=== PATIENT | female | born 1945 | race Caucasian/White ===

== ENCOUNTER 2018-03-21 22:23 | Emergency (ER) | payer OTHER ==
[2018-03-21 23:37] LABS: Absolute Lymphocytes (CBC) 2.2 K/uL (0.7-4.9); Absolute Monocytes 0.5 K/uL (0.1-1.3); Absolute Neutrophil 4.6 K/uL (1.8-8.0); Basophils % 0.9 % (0-1.3); Eosinophils % 2.6 % (0-4.4); Hematocrit 39.6 % (36.0-45.0); Lymphocytes % 29.1 % (15.3-44.8); MCH 28.9 pg (27.0-35.0); MPV 10.2 fL (7.6-11.3); Monocytes % 6.9 % (3.3-12.3); RBC Red Blood Cell Count 4.56 M/uL (3.86-4.86)
[2018-03-21 23:40] LABS: Protime INR 0.97
[2018-03-21 23:47] LABS: Bicarbonate 28 mEq/L (21-31); Glucose Level 371 mg/dL (65-120); Potassium 4.3 mEq/L (3.6-5.0); Sodium Level 132 mEq/L (135-145)
[2018-03-21 23:53] LABS: ALT/SGPT 31 IU/L (10-60); AST/SGOT 36 IU/L (10-42); Albumin 3.4 g/dL (3.2-5.5); Alkaline Phosphatase 78 IU/L (42-121); BUN Blood Urea Nitrogen 17 mg/dL (6-20); Bilirubin Direct 0.1 mg/dL (0-0.2); Bilirubin Total 0.7 mg/dL (0.3-1.2); Protein, Total 7.4 g/dL (6.0-8.3)
[2018-03-22 00:04] LABS: Alcohol Serum/Plasma < 10 mg/dl
[2018-03-22] MEDS ORDERED: NA CHLORIDE 0.9% 1,000 ML ONE (02:04)
[2018-03-22 02:14] LABS: Barbiturates NEGATIVE; Benzodiazepines NEGATIVE; Cocaine NEGATIVE; METHAMPHETAM NEGATIVE; Opiates NEGATIVE
[2018-03-22 02:21] LABS: Urine Blood TRACE (NEG); Urine Glucose 2+ (NEG); Urine Protein NEGATIVE (NEG); Urine Specific Gravity 1.025 (1.005-1.030); Urine pH 5.5 (5.0-7.0)
--- NOTE | 2018-03-22 02:28 | EDPHYS ---
Physician Documentation [facility] Name: Daria Dietz Age: 72 yrs Sex: Female : 1945 Arrival Date: 03/21/2018 Time: 22:27 Bed 24 Private MD: Ngero Nieves H ED Physician Luis Fernando Atwood HPI: 03/21 23:00 This 72 yrs old Female presents to ER via Ambulatory with complaints of pm1 Breathing Difficulty. 23:00 The patient has shortness of breath at rest. Onset: The symptoms/episode began/occurred pm1 3 month(s) ago. Duration: The symptoms. Associated signs and symptoms: Pertinent negatives: chest pain, non-productive cough, productive cough, dizziness, fever, loss of consciousness, vomiting. Severity of symptoms: in the emergency department the symptoms are unchanged. The patient has experienced similar episodes in the past, chronically. Patient with diagnosis of dementia a few months ago and is currently seeing Dr. Erazo for management. Patient with sensation of shortness of breath due to the belief that people in her attic are burning vegetation to produce smoke to irritate her asthma and COPD. Historical: - Allergies: 22:48 PENICILLINS; fc - Home Meds: 22:48 gabapentin oral oral [Active]; albuterol sulfate 2.5 mg /3 mL (0.083 %) Inhl nebu as fc needed [Active]; Wellbutrin Oral [Active]; Dementia medication [Active]; glyburide-metformin oral oral [Active]; Novolin 70/30 [place] Sub-Q 25 unit twice a day [Active]; - PMHx: 22:48 COPD; Dementia; tuberculosis; Diabetes - IDDM; Hypertension; neuropathy; fc - PSHx: 22:48 Hysterectomy; L lung partially removed; back surgery; Cholecystectomy; Appendectomy; L fc shoulder repair; Knee surgery; - Immunization history:: Last tetanus immunization: unknown. - Social history:: Smoking status: Patient/guardian denies using tobacco. ROS: 23:00 Constitutional: Negative for fever, chills, and weight loss, Eyes: Negative for injury, pm1 pain, redness, and discharge, ENT: Negative for injury, pain, and discharge, Neck: Negative for injury, pain, and swelling, Cardiovascular: Negative for chest pain, palpitations, and edema. 23:00 Abdomen/GI: Negative for abdominal pain, nausea, vomiting, diarrhea, and constipation, Back: Negative for injury and pain, : Negative for injury, bleeding, discharge, and swelling, MS/Extremity: Negative for injury and deformity, Skin: Negative for injury, rash, and discoloration, Neuro: Negative for headache, weakness, numbness, tingling, and seizure. 23:00 Respiratory: Positive for shortness of breath, when the people in the attic create smoke through her vents in the house. Exam: 23:00 Constitutional: This is a well developed, well nourished patient who is awake, alert, pm1 and in no acute distress. Head/Face: Normocephalic, atraumatic. Eyes: Pupils equal round and reactive to light, extra-ocular motions intact. Lids and lashes normal. Conjunctiva and sclera are non-icteric and not injected. Cornea within normal limits. Periorbital areas with no swelling, redness, or edema. ENT: Nares patent. No nasal discharge, no septal abnormalities noted. Tympanic membranes are normal and external auditory canals are clear. Oropharynx with no redness, swelling, or masses, exudates, or evidence of obstruction, uvula midline. Mucous membranes moist. Neck: Trachea midline, no thyromegaly or masses palpated, and no cervical lymphadenopathy. Supple, full range of motion without nuchal rigidity, or vertebral point tenderness. No Meningismus. Chest/axilla: Normal chest wall appearance and motion. Nontender with no deformity. No lesions are appreciated. Cardiovascular: Regular rate and rhythm with a normal S1 and S2. No gallops, murmurs, or rubs. Normal PMI, no JVD. No pulse deficits. Respiratory: Lungs have equal breath sounds bilaterally, clear to auscultation and percussion. No rales, rhonchi or wheezes noted. No increased work of breathing, no retractions or nasal flaring. Abdomen/GI: Soft, non-tender, with normal bowel sounds. No distension or tympany. No guarding or rebound. No evidence of tenderness throughout. Back: No spinal tenderness. No costovertebral tenderness. Full range of motion. Skin: Warm, dry with normal turgor. Normal color with no rashes, no lesions, and no evidence of cellulitis. MS/ Extremity: Pulses equal, no cyanosis. Neurovascular intact. Full, normal range of motion. Neuro: Awake and alert, GCS 15, oriented to person, place, time, and situation. Cranial nerves II-XII grossly intact. Motor strength 5/5 in all extremities. Sensory grossly intact. Cerebellar exam normal. Normal gait. Vital Signs: 22:39 BP 167 / 73; Pulse 106; Resp 20; Temp 98.0(O); Pulse Ox 97% on R/A; Weight 73.48 kg fc (R); Height 5 ft. 6 in. (167.64 cm) (R); Pain 7/10; 03/22 00:09 BP 145 / 57; Pulse 82; Resp 18; Pulse Ox 97% on R/A; Pain 0/10; ao 01:29 BP 143 / 58; Pulse 84; Resp 16; Pulse Ox 99% on R/A; Pain 0/10; ao 02:57 BP 135 / 62; Pulse 82; Resp 16; Pulse Ox 98% on R/A; Pain 0/10; ao 03/21 22:39 Body Mass Index 26.15 (73.48 kg, 167.64 cm) fc MDM: 03/21 22:44 Patient medically screened. pm1 03/22 01:52 Data reviewed: vital signs. Data interpreted: Pulse oximetry: on room air is 99 %. pm1 Interpretation: normal. 02:15 ED course: Daughter has attempted to place the patient in a fci for the pm1 management of her dementia but she refused to go to [facility] at the last minute.. 02:21 Counseling: I had a detailed discussion with the patient and/or guardian regarding: the pm1 historical points, exam findings, and any diagnostic results supporting the discharge/admit diagnosis, lab results, radiology results, the need for outpatient follow up, to return to the emergency department if symptoms worsen or persist or if there are any questions or concerns that arise at home. 03/21 22:56 Order name: Basic Metabolic Panel pm1 03/21 22:56 Order name: CBC with Diff; Complete Time: 00:42 pm1 03/21 22:56 Order name: ETOH Level pm1 03/21 22:56 Order name: Hepatic Function; Complete Time: 00:42 pm1 03/21 22:56 Order name: PT-INR; Complete Time: 00:42 pm1 03/21 22:56 Order name: Ptt, Activated; Complete Time: 00:42 pm1 03/21 22:56 Order name: Urine Drug Screen; Complete Time: 02:20 pm1 03/21 22:56 Order name: EKG; Complete Time: 22:57 pm1 03/21 22:57 Order name: Basic Metabolic Panel; Complete Time: 00:42 EDMS 03/21 22:57 Order name: Alcohol Serum/Plasma; Complete Time: 00:42 EDMS 03/21 22:57 Order name: Chest Single View XRAY pm1 03/22 01:53 Order name: Urine Dipstick--Ancillary (enter results) em1 03/22 01:53 Order name: Urine Dipstick-Ancillary; Complete Time: 02:44 EDMS 03/21 22:56 Order name: EKG - Nurse/Tech; Complete Time: 23:26 pm1 03/21 22:56 Order name: IV Saline Lock; Complete Time: 23:26 pm1 03/21 22:56 Order name: Labs collected and sent; Complete Time: 23:26 pm1 03/21 22:56 Order name: Urine Dipstick-Ancillary (obtain specimen); Complete Time: 01:52 pm1 Administered Medications: 02:10 Drug: NS 0.9% 1000 ml Route: IV; Rate: 1000 ml; Site: right forearm; ao 03:03 Follow up: IV Status: Completed infusion ao Disposition: 03/22/18 02:28 Discharged to Home. Impression: Dementia in other diseases classified elsewhere, Hallucinations, unspecified. - Condition is Stable. - Discharge Instructions: Dementia. - Medication Reconciliation Form, Thank You Letter form. - Follow up: Emergency Department; When: As needed; Reason: Worsening of condition. Follow up: Private Physician; When: 2 - 3 days; Reason: Recheck today's complaints, Continuance of care, Re-evaluation by your physician. - Problem is new. - Symptoms have improved. Addendum: 03/23/2018 07:28 Co-signature as Attending Physician, Luis Fernando Atwood MD I agree with the assessment and c amaro plan of care. Signatures: Dispatcher [employer] Luis Fernando Willoughby MD MD cha Chretien, Felicia, RN Rylan Frederick RN TRANG ao Vince Matos, ROSY DIRECTOR PRISON pm1
--- NOTE | 2018-03-22 02:28 | ER ---
Nurse's Notes [facility] Name: Daria Dietz Age: 72 yrs Sex: Female : 1945 Arrival Date: 03/21/2018 Time: 22:27 Bed 24 Private MD: Negro Nieves H Diagnosis: Dementia in other diseases classified elsewhere;Hallucinations, unspecified Presentation: 03/21 22:39 Presenting complaint: Patient states: that she is having trouble breathing and has fc every night for some time. States that there is someone in her attic that is putting smoke in the vents. Pt has hx of dementia. She is also complaining of arm and leg pain. Transition of care: patient was not received from another setting of care. Onset of symptoms was March 2018. Initial Sepsis Screen: Does the patient meet any 2 criteria? No. Patient's initial sepsis screen is negative. Does the patient have a suspected source of infection? No. Patient's initial sepsis screen is negative. Care prior to arrival: None. 22:39 Method Of Arrival: Ambulatory fc 22:39 Acuity: DANIEL 3 fc Triage Assessment: 23:01 General: Appears in no apparent distress. comfortable, Behavior is calm. Respiratory: ao Reports Imaginary people who smoke and maker SOB Onset: The symptoms/episode began/occurred gradually, the patient reports symptoms have resolved. Historical: - Allergies: 22:48 PENICILLINS; fc - Home Meds: 22:48 gabapentin oral oral [Active]; albuterol sulfate 2.5 mg /3 mL (0.083 %) Inhl nebu as fc needed [Active]; Wellbutrin Oral [Active]; Dementia medication [Active]; glyburide-metformin oral oral [Active]; Novolin 70/30 [place] Sub-Q 25 unit twice a day [Active]; - PMHx: 22:48 COPD; Dementia; tuberculosis; Diabetes - IDDM; Hypertension; neuropathy; fc - PSHx: 22:48 Hysterectomy; L lung partially removed; back surgery; Cholecystectomy; Appendectomy; L fc shoulder repair; Knee surgery; - Immunization history:: Last tetanus immunization: unknown. - Social history:: Smoking status: Patient/guardian denies using tobacco. Screenin:42 Abuse screen: Denies threats or abuse. Nutritional screening: No deficits noted. fc Tuberculosis screening: hx of and had part of lung removed for it. Fall Risk Fall in past 12 months (25 points). Secondary diagnosis (15 points) dementia, No IV (0 pts). Ambulatory Aid- None/Bed Rest/Nurse Assist (0 pts). Gait- Normal/Bed Rest/Wheelchair (0 pts) Mental Status- Overestimates/Forgets Limitations (15 pts.). Total [place] Fall Scale indicates High Risk Score (45 or more points). Fall prevention measures have been instituted. Side Rails Up X 2 Placed Close to Nursing Station Frequent Obs/Assessments Occuring Family Present and informed to notify staff if the need to leave the bedside As available patient and family educated on Fall Prevention Program and Strategies. Assessment: 22:57 General: Appears in no apparent distress. comfortable, Behavior is cooperative, ao anxious, inappropriate for age. Pain: Denies pain. Neuro: Level of Consciousness is awake, alert, confused, Oriented to person, place, Moves all extremities. Full function Speech is normal, Facial symmetry appears normal, Pupils are PERRLA. Cardiovascular: Heart tones S1 S2 Patient's skin is warm and dry. Rhythm is regular. Respiratory: Airway is patent Respiratory effort is even, unlabored, Respiratory pattern is regular, symmetrical, Breath sounds are clear bilaterally. Breath sounds are diminished in right posterior lower lobe. GI: Abdomen is non-distended. : No signs and/or symptoms were reported regarding the genitourinary system. EENT: No signs and/or symptoms were reported regarding the EENT system. Derm: No signs and/or symptoms reported regarding the dermatologic system. Skin temperature is warm. Musculoskeletal: Range of motion: limited in all extremities. 03/22 00:09 Reassessment: Patient appears in no apparent distress at this time. No changes from ao previously documented assessment. Patient and/or family updated on plan of care and expected duration. Pain level reassessed. Patient is alert, oriented x 3, equal unlabored respirations, skin warm/dry/pink. Patient denies pain at this time. 01:29 Reassessment: Patient appears in no apparent distress at this time. Patient and/or ao family updated on plan of care and expected duration. Pain level reassessed. Patient is alert, oriented x 3, equal unlabored respirations, skin warm/dry/pink. 02:20 Reassessment: Patient appears in no apparent distress at this time. Patient and/or ao family updated on plan of care and expected duration. Pain level reassessed. Patient is alert, oriented x 3, equal unlabored respirations, skin warm/dry/pink. 02:57 Reassessment: Dc Instructions given to patient and caregiver. Patient understand the ao POC and to follow up with PCP, No questions at this time. Vital Signs: 03/21 22:39 BP 167 / 73; Pulse 106; Resp 20; Temp 98.0(O); Pulse Ox 97% on R/A; Weight 73.48 kg fc (R); Height 5 ft. 6 in. (167.64 cm) (R); Pain 7/10; 03/22 00:09 BP 145 / 57; Pulse 82; Resp 18; Pulse Ox 97% on R/A; Pain 0/10; ao 01:29 BP 143 / 58; Pulse 84; Resp 16; Pulse Ox 99% on R/A; Pain 0/10; ao 02:57 BP 135 / 62; Pulse 82; Resp 16; Pulse Ox 98% on R/A; Pain 0/10; ao 03/21 22:39 Body Mass Index 26.15 (73.48 kg, 167.64 cm) fc ED Course: 03/21 22:27 Patient arrived in ED. es 22:27 Nergo Nieves MD is Private Physician. es 22:39 Arm band placed on Patient placed in an exam room, on a stretcher. fc 22:41 Triage completed. fc 22:42 Patient has correct armband on for positive identification. Placed in gown. Bed in low fc position. Call light in reach. Pulse ox on. NIBP on. 22:42 No provider procedures requiring assistance completed. fc 22:44 Vince Matos NP is PHCP. pm1 22:44 Luis Fernando Atwood MD is Attending Physician. pm1 22:56 Rylan Benjamin RN is Primary Nurse. ao 23:26 EKG done, by ED staff, reviewed by Vince Matos NP. Inserted saline lock: 22 gauge ao in right forearm, using aseptic technique. Blood collected. 23:52 X-ray completed. Portable x-ray completed in exam room. Patient tolerated procedure jw2 well. 23:57 Chest Single View XRAY In Process Unspecified. EDMS 03/22 02:58 IV discontinued, intact, bleeding controlled, No redness/swelling at site. Pressure ao dressing applied. Administered Medications: 02:10 Drug: NS 0.9% 1000 ml Route: IV; Rate: 1000 ml; Site: right forearm; ao 03:03 Follow up: IV Status: Completed infusion ao Outcome: 02:28 Discharge ordered by . pm1 02:57 Discharged to home via wheelchair. ao 02:57 Condition: stable 02:57 Discharge instructions given to patient, sealer aircraft, Instructed on discharge instructions, follow up and referral plans. Demonstrated understanding of instructions, follow-up care, medications. 03:03 Patient left the ED. ao Signatures: Dispatcher [employer] Cece Orona Felicia, RN RN Rylan Miles RN RN ao Marinas, Patrick, NP CHIP LOFT WORKER pm1 Bianca Allen2
--- NOTE | 2018-03-22 07:15 | EKG ---
Test Date: 2018-03-21 Test Time: 23:22:13 Endbander: NESS MEASUREMENT RESULTS: Intervals: Rate: 85 PA: 122 QRSD: 76 QT: 392 QTc: 466 Cogswell: P: 78 PA: 122 QRS: 30 T: 54 INTERPRETIVE STATEMENTS: Normal sinus rhythm Normal ECG Compared to ECG 05/06/2017 10:48:32 No significant changes Electronically Signed On 03-22-18 07:14:49 CDT by Chester Cisneros
--- NOTE | 2018-03-22 08:37 | RAD REPORT ---
EXAM DESCRIPTION: Karmen Single View03/21/2018 11:57 pm CLINICAL HISTORY: sob COMPARISON: January 2018 FINDINGS: Postsurgical changes involve the left lung. The lungs appear clear of acute infiltrate. The heart is normal size IMPRESSION: No acute abnormalities displayed
== END 2018-03-22 03:03 | disposition home or self-care (01) ==
LOC: ER 22:23
DX: F03.90 Unspecified dementia, unspecified severity, without behavioral disturbance, psychotic disturbance, mood disturbance, and anxiety (principal); R44.3 Hallucinations, unspecified; E11.9 Type 2 diabetes mellitus without complications; I10 Essential (primary) hypertension; J44.9 Chronic obstructive pulmonary disease, unspecified; Z88.0 Allergy status to penicillin
CPT/HCPCS: 36415; 71045; 80048; 80076; 80307; 80320; 81003; 85025; 85610; 85730; 93005; 96360; 99284; J7030

== ENCOUNTER 2018-03-24 09:10 | Emergency (ER) | payer OTHER ==
--- NOTE | 2018-03-24 10:35 | RAD REPORT ---
EXAM DESCRIPTION: CT - Head Brain Wo Cont - 03/24/2018 10:28 am CLINICAL HISTORY: Alteration of consciousness/hallucinations COMPARISON: May 2017 TECHNIQUE: Computed axial tomography of the head was obtained. IV contrast was not requested. All CT scans are performed using dose optimization technique as appropriate and may include automated exposure control or mA/KV adjustment according to patient size. FINDINGS: An intracranial bleed is not seen . The ventricles are normal in caliber. No extra-axial fluid collection is noted. Fluid within the sinuses/ mastoids is not seen. IMPRESSION: No acute intracranial abnormality is seen. If patient's symptoms persist MRI of the bra in would be recommended.
[2018-03-24 10:45] LABS: Arterial Blood Carboxyhemoglob 1.3 % (0-1.5); Blood Gas Oxyhemoglobin 93.3 % (94-97); Blood O2 Saturation 95.3 % (92-98.5)
--- NOTE | 2018-03-24 11:08 | RAD REPORT ---
EXAM DESCRIPTION: RAD - Chest Single View - 03/24/2018 11:02 am CLINICAL HISTORY: Cough, altered mental status COMPARISON: March 21 TECHNIQUE: AP portable chest image was obtained 1031 hours . FINDINGS: No new mass, consolidation or failure finding. Left hemithorax surgical changes are noted with surgical clips and partial rib resection. Heart and vasculature are normal. No measurable pleura l effusion and no pneumothorax. Postsurgical and degenerative bony changes are present. No acute find ing noted since prior imaging. Interstitial markings are prominent but stable. IMPRESSION: No acute cardiopulmonary process. The above detailed chest findings are stable from March 21.
--- NOTE | 2018-03-24 11:36 | ER ---
Nurse's Notes [facility] Name: Daria Dietz Age: 72 yrs Sex: Female : 1945 Arrival Date: 03/24/2018 Time: 09:13 Bed 25 Private MD: Negro Nieves H Diagnosis: Altered mental status, unspecified;Paranoid personality disorder;Type 1 diabetes mellitus;Hypomagnesemia Presentation: 03/24 09:47 Presenting complaint: Child states: was here on Saturday night for AMS, has been having iw hallucinations, sees things in her house, does not feel safe at home, family spoke with Dr. Erazo this morning, advised to come to ER for evaluation dn possible transfer to [facility]. Transition of care: patient was not received from another setting of care. Onset of symptoms was March 24, 2018. Initial Sepsis Screen: Does the patient meet any 2 criteria? No. Patient's initial sepsis screen is negative. Does the patient have a suspected source of infection? No. Patient's initial sepsis screen is negative. Care prior to arrival: None. 09:47 Method Of Arrival: Ambulatory iw 09:47 Acuity: DANIEL 3 iw Historical: - Allergies: 09:50 PENICILLINS; iw - Home Meds: 09:50 albuterol sulfate 2.5 mg /3 mL (0.083 %) Inhl nebu as needed [Active]; DEMENTIA iw MEDICATION [Active]; gabapentin Oral [Active]; glyburide-metformin Oral [Active]; Novolin 70/30 [place] Sub-Q 25 unit twice a day [Active]; Wellbutrin Oral [Active]; - PMHx: 09:50 COPD; Dementia; Diabetes - IDDM; Hypertension; neuropathy; tuberculosis; iw - PSHx: 09:50 Hysterectomy; L lung partially removed; back surgery; Cholecystectomy; Appendectomy; L iw shoulder repair; Knee surgery; - Immunization history:: Adult Immunizations. - Social history:: Smoking status: Patient/guardian denies using tobacco. Screenin:10 Abuse screen: Denies threats or abuse. Denies injuries from another. Nutritional aj1 screening: No deficits noted. Tuberculosis screening: No symptoms or risk factors identified. 17:28 Fall Risk None identified. aj1 Assessment: 10:10 General: Appears in no apparent distress. uncomfortable, Behavior is calm, cooperative. aj1 10:10 Pain: Complains of pain in left trapezius, right trapezius, left scapular area, right aj1 scapular area and neck Pain does not radiate. Pain currently is 6 out of 10 on a pain scale. Quality of pain is described as aching, Is continuous, Alleviated by nothing. Aggravated by nothing. Neuro: Level of Consciousness is awake, alert, obeys commands, Oriented to person, place, time, situation, Moves all extremities. Full function Speech is normal, Facial symmetry appears normal, Pupils are PERRLA, Reports feeling scared and confused, states that at times she is unable to determine what is real and what isn't. Family states that she has been combative and physically violent against them. Family states they received a call this weekend at one in the morning because the patient's neighbors found her in the street screaming for help, she thought that someone was trying to kill her, and that people have been shooting her with lasers. Family states that they do not believe that she would intentionally harm herself or others, but they are afraid she might when she is unsure of what is real or not. . Cardiovascular: Heart tones S1 S2 present Patient's skin is warm and dry. Respiratory: Airway is patent Respiratory effort is even, unlabored, Respiratory pattern is regular, symmetrical. GI: No signs and/or symptoms were reported involving the gastrointestinal system. : No signs and/or symptoms were reported regarding the genitourinary system. EENT: No signs and/or symptoms were reported regarding the EENT system. Derm: No signs and/or symptoms reported regarding the dermatologic system. Skin is pink, warm \T\ dry. normal. Musculoskeletal: No signs and/or symptoms reported regarding the musculoskeletal system. Circulation, motion, and sensation intact. 10:15 Reassessment: Notified Frank Flowers, rn discharge nurse of psychiatric patient with aj1 potential for self harm. Items removed from the room. Family at bedside, instructed to inform staff if they are leaving. 10:15 Reassessment: Spoke with Dr. Atwood regarding order for cardiac monitoring and aj1 patient's potential for self harm, Order for cardiac monitoring dc'd per Dr. Atwood. 10:57 General: Appears. aj1 11:33 Reassessment: Patient appears in no apparent distress at this time. No changes from aj1 previously documented assessment. Patient and/or family updated on plan of care and expected duration. Pain level reassessed. Patient is alert, oriented x 3, equal unlabored respirations, skin warm/dry/pink. 12:17 Reassessment: Patient appears in no apparent distress at this time. No changes from aj1 previously documented assessment. Patient and/or family updated on plan of care and expected duration. Pain level reassessed. Patient is alert, oriented x 3, equal unlabored respirations, skin warm/dry/pink. Family at bedside. 13:40 Reassessment: Patient appears in no apparent distress at this time. No changes from aj1 previously documented assessment. Patient and/or family updated on plan of care and expected duration. Pain level reassessed. Patient is alert, oriented x 3, equal unlabored respirations, skin warm/dry/pink. 14:30 Reassessment: Patient appears in no apparent distress at this time. No changes from aj1 previously documented assessment. Patient and/or family updated on plan of care and expected duration. Pain level reassessed. Patient is alert, oriented x 3, equal unlabored respirations, skin warm/dry/pink. 15:37 Reassessment: Patient appears in no apparent distress at this time. No changes from aj1 previously documented assessment. Patient and/or family updated on plan of care and expected duration. Pain level reassessed. Patient is alert, oriented x 3, equal unlabored respirations, skin warm/dry/pink. 16:40 Reassessment: Patient appears in no apparent distress at this time. No changes from aj1 previously documented assessment. Patient and/or family updated on plan of care and expected duration. Pain level reassessed. Patient is alert, oriented x 3, equal unlabored respirations, skin warm/dry/pink. 17:26 Reassessment: Patient appears in no apparent distress at this time. No changes from aj1 previously documented assessment. Patient and/or family updated on plan of care and expected duration. Pain level reassessed. Patient is alert, oriented x 3, equal unlabored respirations, skin warm/dry/pink. 17:27 Reassessment: Patient given dietary tray to eat on the way to psychiatric facility. aj1 Vital Signs: 09:50 BP 159 / 64; Pulse 93; Resp 16; Temp 98.4; Pulse Ox 97% on R/A; Weight 73.48 kg; Height iw 5 ft. 5 in. (165.10 cm); Pain 0/10; 10:10 BP 161 / 75; Pulse 89; Resp 18; Pulse Ox 99% ; aj1 11:34 BP 157 / 69; Pulse 88; Resp 18; Pulse Ox 99% ; aj1 15:38 BP 144 / 56; Pulse 83; Resp 18; Pulse Ox 98% on R/A; aj1 16:41 BP 150 / 61; Pulse 83; Resp 18; Pulse Ox 97% on R/A; aj1 17:27 BP 157 / 67; Pulse 82; Resp 18; Pulse Ox 99% ; aj1 09:50 Body Mass Index 26.96 (73.48 kg, 165.10 cm) iw ED Course: 09:13 Patient arrived in ED. mr 09:13 Negro Nieves MD is Private Physician. mr 09:49 Triage completed. iw 09:50 Arm band placed on. iw 10:00 Safety Checks: Personal items have been removed The door is open or patient has been aj1 placed in a hallway bed/chair. A family member and/or friend is present and encouraged to stay. 10:07 Luis Fernando Atwood MD is Attending Physician. [facility] 10:09 Zayda Trammell, TRANG is Primary Nurse. aj1 10:10 Patient has correct armband on for positive identification. Bed in low position. Call aj1 light in reach. Family at bedside. 10:10 No provider procedures requiring assistance completed. aj1 10:15 Safety Checks: Personal items have been removed The door is open or patient has been aj1 placed in a hallway bed/chair. A family member and/or friend is present and encouraged to stay. 10:28 CT Head Brain wo Cont In Process Unspecified. EDMS 10:30 Safety Checks: Personal items have been removed Patient in CT. aj1 10:39 X-ray completed. Portable x-ray completed in exam room. Patient tolerated procedure ml well. 10:42 XRAY Chest (1 view) In Process Unspecified. EDMS 10:52 EKG done, by fish and wildlife technician. reviewed by Luis Fernando Atwood MD. at1 11:00 Safety Checks: Personal items have been removed The door is open or patient has been aj1 placed in a hallway bed/chair. A family member and/or friend is present and encouraged to stay. 11:15 Safety Checks: Personal items have been removed The door is open or patient has been aj1 placed in a hallway bed/chair. A family member and/or friend is present and encouraged to stay. 11:30 Safety Checks: Personal items have been removed The door is open or patient has been aj1 placed in a hallway bed/chair. A family member and/or friend is present and encouraged to stay. 11:45 Safety Checks: Personal items have been removed The door is open or patient has been aj1 placed in a hallway bed/chair. A family member and/or friend is present and encouraged to stay. 11:45 Inserted saline lock: 22 gauge in left antecubital area, using aseptic technique. Blood aj1 collected. 11:45 Initial lab(s) drawn, by me, sent to lab. First set of blood cultures drawn by me. aj1 12:00 Safety Checks: Personal items have been removed The door is open or patient has been aj1 placed in a hallway bed/chair. A family member and/or friend is present and encouraged to stay. 12:05 Second set of blood cultures drawn by me. aj1 12:15 Safety Checks: Personal items have been removed The door is open or patient has been aj1 placed in a hallway bed/chair. A family member and/or friend is present and encouraged to stay. 12:30 Safety Checks: Personal items have been removed The door is open or patient has been aj1 placed in a hallway bed/chair. A family member and/or friend is present and encouraged to stay. 12:45 Safety Checks: Personal items have been removed The door is open or patient has been aj1 placed in a hallway bed/chair. A family member and/or friend is present and encouraged to stay. 13:00 Safety Checks: Personal items have been removed The door is open or patient has been aj1 placed in a hallway bed/chair. A family member and/or friend is present and encouraged to stay. 13:15 Safety Checks: Personal items have been removed The door is open or patient has been aj1 placed in a hallway bed/chair. A family member and/or friend is present and encouraged to stay. 13:30 Safety Checks: Personal items have been removed The door is open or patient has been aj1 placed in a hallway bed/chair. A family member and/or friend is present and encouraged to stay. 13:45 Safety Checks: Personal items have been removed The door is open or patient has been aj1 placed in a hallway bed/chair. A family member and/or friend is present and encouraged to stay. 14:00 Safety Checks: Personal items have been removed The door is open or patient has been aj1 placed in a hallway bed/chair. A family member and/or friend is present and encouraged to stay. 14:12 Straight cath inserted, using sterile technique, Returned clear yellow urine. aj1 14:15 Safety Checks: Personal items have been removed The door is open or patient has been aj1 placed in a hallway bed/chair. A family member and/or friend is present and encouraged to stay. 14:30 Safety Checks: Personal items have been removed The door is open or patient has been aj1 placed in a hallway bed/chair. A family member and/or friend is present and encouraged to stay. 14:45 Safety Checks: Personal items have been removed The door is open or patient has been aj1 placed in a hallway bed/chair. A family member and/or friend is present and encouraged to stay. 15:00 Safety Checks: Personal items have been removed The door is open or patient has been aj1 placed in a hallway bed/chair. A family member and/or friend is present and encouraged to stay. 15:05 Repeat lab(s) drawn. by me, sent to lab. [facility] 15:15 Safety Checks: Personal items have been removed The door is open or patient has been aj1 placed in a hallway bed/chair. A family member and/or friend is present and encouraged to stay. 15:30 Safety Checks: Personal items have been removed The door is open or patient has been aj1 placed in a hallway bed/chair. A family member and/or friend is present and encouraged to stay. 15:45 Safety Checks: Personal items have been removed The door is open or patient has been aj1 placed in a hallway bed/chair. A family member and/or friend is present and encouraged to stay. 16:00 Safety Checks: Personal items have been removed The door is open or patient has been aj1 placed in a hallway bed/chair. A family member and/or friend is present and encouraged to stay. 16:15 Safety Checks: Personal items have been removed The door is open or patient has been aj1 placed in a hallway bed/chair. A family member and/or friend is present and encouraged to stay. 16:30 Safety Checks: Personal items have been removed The door is open or patient has been aj1 placed in a hallway bed/chair. A family member and/or friend is present and encouraged to stay. 16:45 Safety Checks: Personal items have been removed The door is open or patient has been aj1 placed in a hallway bed/chair. A family member and/or friend is present and encouraged to stay. 17:00 Safety Checks: Personal items have been removed The door is open or patient has been aj1 placed in a hallway bed/chair. A family member and/or friend is present and encouraged to stay. 17:15 Safety Checks: Personal items have been removed The door is open or patient has been aj1 placed in a hallway bed/chair. A family member and/or friend is present and encouraged to stay. 17:28 IV discontinued, intact, bleeding controlled, No redness/swelling at site. Pressure aj1 dressing applied. 17:30 Safety Checks: Personal items have been removed The door is open or patient has been aj1 placed in a hallway bed/chair. A family member and/or friend is present and encouraged to stay. Administered Medications: 12:10 Drug: NS 0.9% 1000 ml Route: IV; Rate: 125 ml/hr; Site: right antecubital; aj1 17:31 Follow up: IV Status: Completed infusion; IV Intake: 625ml [facility] 12:10 Drug: Albuterol - atroVENT (3:1) (2.5 mg - 0.5 mg) 3 ml Route: Nebulizer; aj1 15:43 Follow up: Response: No adverse reaction 13:25 Drug: Insulin Regular Human 10 units {Co-Signature: tl3 (Nhi Coleman RN).} Route: dm5 Sub-Q; Site: left lower abdomen; 15:44 Follow up: Response: No adverse reaction [facility] 13:41 Drug: NS 0.9% 1000 ml Route: IV; Rate: 1 bolus; Site: left antecubital; dm5 15:43 Follow up: IV Status: Completed infusion; IV Intake: 1000ml [facility] 13:41 Drug: Magnesium Sulfate 1 grams Route: IVPB; Infused Over: 1 hrs; Site: left dm5 antecubital; 15:44 Follow up: IV Status: Completed infusion; IV Intake: 100ml aj1 16:35 Drug: Insulin Regular Human 8 units {Co-Signature: tl3 (Nhi Coleman RN).} Route: IVP; aj1 Site: left antecubital; 17:25 Follow up: Response: No adverse reaction aj1 17:25 Drug: Levemir 100 unit/mL 30 units Route: Sub-Q; Site: left upper arm; aj1 17:31 Follow up: Response: No adverse reaction aj1 Point of Care Testing: Blood Glucose: 14:27 Blood Glucose: 287 mg/dL; aj1 17:10 Blood Glucose: 203 mg/dL; aj1 Ranges: Intake: 15:43 IV: 1000ml; Total: 1000ml. aj1 15:44 IV: 100ml; Total: 1100ml. aj1 17:31 IV: 625ml; Total: 1725ml. aj1 Outcome: 11:35 ER care complete, transfer ordered by MD. delvalle 17:30 Transferred by ground EMS aj 17:30 Condition: good 17:30 Discharge instructions given to patient, family, Instructed on the need for transfer, Demonstrated understanding of instructions. 17:42 Patient left the ED. aj1 Signatures: Dispatcher [employer] EDZayda De La Garza RN RN aj1 Tali Noel, RN RN Luis Fernando Bacon MD MD cha Rivera, Maria mr Williams, Irene, RN Bridgett Bustillo Amanda, group therapy counselor EKG Tat1 Florina Martinez 3 Nhi Coleman RN tl3
--- NOTE | 2018-03-24 11:37 | EDPHYS ---
Physician Documentation [facility] Name: Daria Dietz Age: 72 yrs Sex: Female : 1945 Arrival Date: 03/24/2018 Time: 09:13 Bed 25 Private MD: Negro Nieves H ED Physician Luis Fernando Atwood HPI: 03/24 11:30 This 72 yrs old Female presents to ER via Ambulatory with complaints of mook Altered Mental Status. 11:30 The patient presents with confusion. mook Historical: - Allergies: 09:50 PENICILLINS; iw - Home Meds: 09:50 albuterol sulfate 2.5 mg /3 mL (0.083 %) Inhl nebu as needed [Active]; DEMENTIA iw MEDICATION [Active]; gabapentin Oral [Active]; glyburide-metformin Oral [Active]; Novolin 70/30 [place] Sub-Q 25 unit twice a day [Active]; Wellbutrin Oral [Active]; - PMHx: 09:50 COPD; Dementia; Diabetes - IDDM; Hypertension; neuropathy; tuberculosis; iw - PSHx: 09:50 Hysterectomy; L lung partially removed; back surgery; Cholecystectomy; Appendectomy; L iw shoulder repair; Knee surgery; - Immunization history:: Adult Immunizations. - Social history:: Smoking status: Patient/guardian denies using tobacco. ROS: 11:31 Constitutional: Negative for fever, chills, and weight loss, Eyes: Negative for injury, mook pain, redness, and discharge, ENT: Negative for injury, pain, and discharge, Neck: Negative for injury, pain, and swelling, Cardiovascular: Negative for chest pain, palpitations, and edema, Abdomen/GI: Negative for abdominal pain, nausea, vomiting, diarrhea, and constipation, Back: Negative for injury and pain, : Negative for injury, bleeding, discharge, and swelling, MS/Extremity: Negative for injury and deformity, Skin: Negative for injury, rash, and discoloration, Neuro: Negative for headache, weakness, numbness, tingling, and seizure, Allergy/Immunology: Negative for hives, rash, and allergies, Endocrine: Negative for neck swelling, polydipsia, polyuria, polyphagia, and marked weight changes, Hematologic/Lymphatic: Negative for swollen nodes, abnormal bleeding, and unusual bruising. 11:31 Respiratory: Positive for cough. 11:31 Psych: Positive for anxiety, paranoid. Exam: 11:32 Constitutional: This is a well developed, well nourished patient who is awake, alert, mook and in no acute distress. Head/Face: Normocephalic, atraumatic. Eyes: Pupils equal round and reactive to light, extra-ocular motions intact. Lids and lashes normal. Conjunctiva and sclera are non-icteric and not injected. Cornea within normal limits. Periorbital areas with no swelling, redness, or edema. ENT: Nares patent. No nasal discharge, no septal abnormalities noted. Tympanic membranes are normal and external auditory canals are clear. Oropharynx with no redness, swelling, or masses, exudates, or evidence of obstruction, uvula midline. Mucous membranes moist. Neck: Trachea midline, no thyromegaly or masses palpated, and no cervical lymphadenopathy. Supple, full range of motion without nuchal rigidity, or vertebral point tenderness. No Meningismus. Chest/axilla: Normal chest wall appearance and motion. Nontender with no deformity. No lesions are appreciated. Cardiovascular: Regular rate and rhythm with a normal S1 and S2. No gallops, murmurs, or rubs. Normal PMI, no JVD. No pulse deficits. Abdomen/GI: Soft, non-tender, with normal bowel sounds. No distension or tympany. No guarding or rebound. No evidence of tenderness throughout. Back: No spinal tenderness. No costovertebral tenderness. Full range of motion. Female : Normal external genitalia. Skin: Warm, dry with normal turgor. Normal color with no rashes, no lesions, and no evidence of cellulitis. MS/ Extremity: Pulses equal, no cyanosis. Neurovascular intact. Full, normal range of motion. Neuro: Awake and alert, GCS 15, oriented to person, place, time, and situation. Cranial nerves II-XII grossly intact. Motor strength 5/5 in all extremities. Sensory grossly intact. Cerebellar exam normal. Normal gait. Psych: Awake, alert, with orientation to person, place and time. Behavior, mood, and affect are within normal limits. 11:32 Respiratory: the patient does not display signs of respiratory distress, Respirations: normal, no acute changes, Breath sounds: decreased breath sounds, rhonchi, wheezing: expiratory Respiratory rate: 18 Vital Signs: 09:50 BP 159 / 64; Pulse 93; Resp 16; Temp 98.4; Pulse Ox 97% on R/A; Weight 73.48 kg; Height iw 5 ft. 5 in. (165.10 cm); Pain 0/10; 10:10 BP 161 / 75; Pulse 89; Resp 18; Pulse Ox 99% ; aj1 11:34 BP 157 / 69; Pulse 88; Resp 18; Pulse Ox 99% ; aj1 15:38 BP 144 / 56; Pulse 83; Resp 18; Pulse Ox 98% on R/A; aj1 16:41 BP 150 / 61; Pulse 83; Resp 18; Pulse Ox 97% on R/A; aj1 17:27 BP 157 / 67; Pulse 82; Resp 18; Pulse Ox 99% ; aj1 09:50 Body Mass Index 26.96 (73.48 kg, 165.10 cm) iw MDM: 10:07 Patient medically screened. [facility] 11:33 Data reviewed: vital signs, nurses notes, lab test result(s), EKG, radiologic studies, [facility] CT scan, plain films. 03/24 10:09 Order name: Basic Metabolic Panel; Complete Time: 13: [facility] 03/24 10:09 Order name: BNP; Complete Time: 13: [facility] 03/24 10:09 Order name: CBC with Diff; Complete Time: 12: [facility] 03/24 10:09 Order name: Ckmb; Complete Time: 13: [facility] 03/24 10:09 Order name: CPK; Complete Time: 13: [facility] 03/24 10:09 Order name: LFT's; Complete Time: 13: [facility] 03/24 10:09 Order name: Magnesium; Complete Time: 13: [facility] 03/24 10:09 Order name: PT-INR; Complete Time: 12: [facility] 03/24 10:09 Order name: Ptt, Activated; Complete Time: 12: [facility] 03/24 10:09 Order name: Troponin (emerg Dept Use Only); Complete Time: 13: [facility] 03/24 10:09 Order name: Lipase; Complete Time: : [facility] 03/24 10:09 Order name: ABG; Complete Time: 11: [facility] 03/24 10:09 Order name: Blood Culture Adult (2) 03/24 10:09 Order name: Urine Culture [facility] 03/24 10:09 Order name: XRAY Chest (1 view); Complete Time: 11:23 [facility] 03/24 10:09 Order name: EKG; Complete Time: 10:10 [facility] 03/24 10:09 Order name: EKG - Nurse/Tech; Complete Time: 11:37 [facility] 03/24 10:09 Order name: IV Saline Lock; Complete Time: 12:10 [facility] 03/24 10:09 Order name: CT Head Brain wo Cont; Complete Time: 11:23 [facility] 03/24 14:21 Order name: Chem 7; Complete Time: 15:36 [facility] 03/24 14:22 Order name: Urine Dipstick--Ancillary (enter results); Complete Time: 15:36 03/24 16:16 Order name: Diet Ada 1800 Oli; Complete Time: 16:16 03/24 10:09 Order name: Labs collected and sent; Complete Time: 12:11 [facility] 03/24 10:09 Order name: O2 Per Protocol; Complete Time: 11:37 [facility] 03/24 10:09 Order name: Urine Dipstick-Ancillary (obtain specimen); Complete Time: 17:32 [facility] Administered Medications: 12:10 Drug: NS 0.9% 1000 ml Route: IV; Rate: 125 ml/hr; Site: right antecubital; aj1 17:31 Follow up: IV Status: Completed infusion; IV Intake: 625ml aj1 12:10 Drug: Albuterol - atroVENT (3:1) (2.5 mg - 0.5 mg) 3 ml Route: Nebulizer; aj1 15:43 Follow up: Response: No adverse reaction aj1 13:25 Drug: Insulin Regular Human 10 units {Co-Signature: tl3 (Nhi Coleman RN).} Route: dm5 Sub-Q; Site: left lower abdomen; 15:44 Follow up: Response: No adverse reaction aj1 13:41 Drug: NS 0.9% 1000 ml Route: IV; Rate: 1 bolus; Site: left antecubital; dm5 15:43 Follow up: IV Status: Completed infusion; IV Intake: 1000ml aj1 13:41 Drug: Magnesium Sulfate 1 grams Route: IVPB; Infused Over: 1 hrs; Site: left dm5 antecubital; 15:44 Follow up: IV Status: Completed infusion; IV Intake: 100ml aj1 16:35 Drug: Insulin Regular Human 8 units {Co-Signature: tl3 (Nhi Coleman RN).} Route: IVP; aj1 Site: left antecubital; 17:25 Follow up: Response: No adverse reaction aj1 17:25 Drug: Levemir 100 unit/mL 30 units Route: Sub-Q; Site: left upper arm; aj 17:31 Follow up: Response: No adverse reaction aj1 Point of Care Testing: Blood Glucose: 14:27 Blood Glucose: 287 mg/dL; aj1 17:10 Blood Glucose: 203 mg/dL; aj1 Ranges: Critical Glucose Levels:Adult <50 mg/dl or >400 mg/dl <40 mg/dl or >180 mg/dl Disposition: 03/24/18 11:35 Transfer ordered to Psych Facility. Diagnosis are Altered mental status, unspecified, Paranoid personality disorder, Type 1 diabetes mellitus, Hypomagnesemia. - Reason for transfer: Higher level of care. - Accepting physician is to psych. - Condition is Stable. - Problem is new. - Symptoms have improved. Signatures: Dispatcher [employer] Zayda Gonzales RN RN aj1 Tali Noel RN RN dm5 Luis Fernando Atwood MD MD cha Williams, Irene, RN RN iw Nhi Coleman RN tl3 Corrections: (The following items were deleted from the chart) 11:36 10:09 Cardiac monitoring ordered. mook de jesus 11:37 10:09 O2 Sat Monitoring ordered. mook hall
[2018-03-24] MEDS ORDERED: IPRATROPIUM BROM 0.5MG/2.5ML ONE (11:57)
[2018-03-24] MEDS ORDERED: NA CHLORIDE 0.9% 1,000 ML ONE ×2 (11:57→13:22)
[2018-03-24] MEDS ORDERED: ALBUTEROL 2.5 MG/3 ML NEB SOL ONE (11:57)
[2018-03-24 12:01] LABS: Absolute Lymphocytes (CBC) 1.6 K/uL (0.7-4.9); Absolute Monocytes 0.4 K/uL (0.1-1.3); Absolute Neutrophil 4.7 K/uL (1.8-8.0); Basophils % 0.9 % (0-1.3); Hematocrit 40.7 % (36.0-45.0); Lymphocytes % 22.9 % (15.3-44.8); MCH 28.9 pg (27.0-35.0); MCV 86.9 fL (80-100); MPV 9.7 fL (7.6-11.3); Monocytes % 5.5 % (3.3-12.3); RBC Red Blood Cell Count 4.69 M/uL (3.86-4.86)
[2018-03-24 12:17] LABS: Potassium 4.9 mEq/L (3.6-5.0)
[2018-03-24 12:23] LABS: Albumin 4.1 g/dL (3.2-5.5); Bilirubin Direct 0.1 mg/dL (0-0.2); Bilirubin Total 0.6 mg/dL (0.3-1.2); Magnesium 1.5 mg/dL (1.8-2.5); Protein, Total 7.4 g/dL (6.0-8.3)
[2018-03-24 12:25] LABS: CKMB Creatine Kinase MB 2.7 ng/ml (0.3-4.0)
[2018-03-24] MEDS ORDERED: INSULIN -REGULAR HUMAN 50 UNIT/0.5 ML ML ONE ×2 (13:21→16:28)
[2018-03-24] MEDS ORDERED: MAGNESIUM SULFATE 1 gm IVPB 1 GM/100 ML BAG IV ONE (13:28)
--- NOTE | 2018-03-24 13:53 | EKG ---
Test Date: 2018-03-24 Test Time: 10:45:11 Parole Agent: NAREN MEASUREMENT RESULTS: Intervals: Rate: 84 WV: 122 QRSD: 80 QT: 376 QTc: 444 [place]: P: 12 WV: 122 QRS: 40 T: 63 INTERPRETIVE STATEMENTS: Normal sinus rhythm Normal ECG Compared to ECG 03/21/2018 23:22:13 No significant changes Electronically Signed On 03-24-18 13:52:28 CDT by Chester Cisneros
[2018-03-24 14:41] LABS: Urine Blood NEGATIVE (NEG); Urine Glucose 2+ (NEG); Urine Protein NEGATIVE (NEG)
[2018-03-24 15:31] LABS: Potassium 3.7 mEq/L (3.6-5.0)
[2018-03-24] MEDS ORDERED: INSULIN DETEMIR 100 UNIT/1 ML INSULIN SQ SCH (16:45)
[2018-03-24] MEDS ORDERED: INSULIN DETEMIR 100 UNIT/1 ML INSULIN SQ ONE (17:06)
== END 2018-03-24 17:42 ==
LOC: ER 09:10
DX: F60.0 Paranoid personality disorder (principal); E10.9 Type 1 diabetes mellitus without complications; E83.42 Hypomagnesemia; I10 Essential (primary) hypertension; J44.9 Chronic obstructive pulmonary disease, unspecified; F03.90 Unspecified dementia, unspecified severity, without behavioral disturbance, psychotic disturbance, mood disturbance, and anxiety; Z79.4 Long term (current) use of insulin; Z88.0 Allergy status to penicillin
CPT/HCPCS: 36415; 51702; 70450; 71045; 80048; 80076; 81003; 82550; 82553; 82805; 82962; 83690; 83735; 83880; 84484; 85025; 85610; 85730; 87040; 87086; 87088; 93005; 94640; 96361; 96365; 96366; 96372; 96375; 99285; J3475; J7030